=== PATIENT | male | born 1970 | race Caucasian/White ===

== ENCOUNTER 2020-07-15 19:08 | Emergency (ER) | payer OTHER ==
[~2020-07-15] VITALS: Ht 175.3 cm; Wt 108.4 kg
[2020-07-15 19:26] VITALS: BP 153/96
--- NOTE | 2020-07-15 19:31 | NUR ---
triaged and waiting in lobby
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
--- NOTE | 2020-07-15 20:13 | NUR ---
PT RETURNED FROM RAD VIA WHEELCHAIR
[2020-07-15] MEDS ORDERED: KETOROLAC 60 MG/2 ML VIAL IM ONE (20:35)
--- NOTE | 2020-07-15 21:30 | NUR ---
PT STATES HIS PAIN IS 8/10 POST IM TORODOL. PT DENIES NEEDING FURTHER PAIN INTERVETIONS. ERMD SAID HE WILL DC WITH RX.
--- NOTE | 2020-07-15 21:38 | NUR ---
EMT AT BEDSIDE GIVING CRUTCHES/KNEE STABALIZER
--- NOTE | 2020-07-15 21:40 | NUR ---
PT GIVEN ONE ON ONE INSTRUCTION WITH CRUTCHES. CRUTCHES FITTED TO PT HEIGHT AND ARM SIZE. PT GIVEN INSTRUCTION ON WALKING WITH CRUTCHES, DEMONSTRATED SAFE USE FOR APPROXIMATELY 40 FEET. PT STATED HE FELT COMFORTABLE WITH USE.
[2020-07-15 21:41] VITALS: BP 153/96
--- NOTE | 2020-07-15 21:41 | NUR ---
KNEE IMMOBILIZER PLACED ON PT L KNEE, FASTENED TO SIZE. +CSM
== END 2020-07-15 21:41 | disposition home or self-care (01) ==
LOC: MED 19:08
DX: M79.605 Pain in left leg (principal); J45.909 Unspecified asthma, uncomplicated; J44.9 Chronic obstructive pulmonary disease, unspecified
CPT/HCPCS: 29505; 73610; 73630; 96372; 99284; J1885; Q0092